=== PATIENT | female | born 1980 | race Caucasian/White ===

== ENCOUNTER → 2017-10-29 | Outpatient (CLI) | payer OTHER | END | disposition home or self-care (01) | LOC: LABWHC1 13:11 | PROVIDERS: ATTEND Internal Medicine Endocrinology, Diabetes & Metabolism | DX: E03.8 Other specified hypothyroidism (principal) | CPT/HCPCS: 36415; 84443 ==

== ENCOUNTER → 2018-01-27 | Outpatient (CLI) | payer OTHER ==
--- NOTE | 2018-02-01 09:29 | MM ---
Reason for exam: follow-up at short interval from prior study. Last mammogram was performed 7 months ago. History: Family history of breast cancer in grandmother at age 64. Physical Findings: Nurse did not find any significant physical abnormalities on exam. MG Diagnostic Mammo w CAD BRENDA Bilateral CC and MLO view(s) were taken. Prior study comparison: July 05, 2017, bilateral MG 3d diag mammo w/cad BRENDA. The breast tissue is heterogeneously dense. This may lower the sensitivity of mammography. No suspicious calcifications are seen. Stable nodular density upper outer right breast. Continued follow up. These results were verbally communicated with the patient and result sheet given to the patient on 01/27/18. ASSESSMENT: Probably benign, BI-RAD 3 RECOMMENDATION: Follow-up diagnostic mammogram of both breasts in 6 months.
== END | disposition home or self-care (01) ==
LOC: RADMAMWWP 15:41
PROVIDERS: ATTEND Family Medicine
DX: N64.4 Mastodynia (principal)
CPT/HCPCS: 77066

== ENCOUNTER 2018-02-24 08:08 | Day surgery (SDC) | payer OTHER ==
[2018-02-21 15:07] VITALS: BMI 41.1
[~2018-02-24 08:08] MED LIST: LACTATED RINGERS 1,000 ML IV SCH
[2018-02-24] MEDS ORDERED: LIDOCAINE 1% 20 ML VIAL (10MG/ML) FOR IV START INTRADERMA ONE (08:37)
[2018-02-24 08:45] VITALS: TEMP 98.4
[2018-02-24] MEDS ORDERED: LIDOCAINE 1% INJ 10MG/ML (20 ML MDV) ONE (09:21)
[2018-02-24] MEDS ORDERED: PROPOFOL 10 MG/ML 20 ML VIAL IV ONE (09:21)
[2018-02-24] MEDS ORDERED: MIDAZOLAM 2 MG/2 ML VIAL ONE (09:21)
[2018-02-24 10:08] VITALS: BP 110/78; PULSE 78; RESP 18
--- NOTE | 2018-02-24 10:08 | P.PCN ---
Date of Procedure: 02/24/18 Procedure(s) Performed: Procedure: 1. Esophagogastroduodenoscopy and biopsy. 2. Colonoscopy and biopsy. Preoperative diagnosis: History of reflux disease, nausea, vomiting and diarrhea. Postoperative diagnosis: 1. Small sliding hiatal hernia with no obvious esophagitis or complicated reflux disease. 2. Mild antral gastritis. 3. Normal colonoscopy. 4. Biopsies obtained from the duodenum, antrum, esophagus, terminal ileum and right colon. Preparation: HalfLytely prep. Sedation: Was provided by anesthesia. Brief clinical history: The patient is a 37-year-old female with history of chronic diarrhea. Initially, it was recurrent, 2 days or so every month. For the last 6 weeks or more the diarrhea is happening more frequently and she was having nausea and vomiting as well. There was some suggestion of dietary triggers since she had her gallbladder surgery in 2003. No extraintestinal manifestations of inflammatory bowel disease or bleeding. Her maternal aunt had Crohn's disease. Procedure: With the patient on her left lateral decubitus position and after informed consent and adequate sedation, I passed the Olympus-GIF 160 video upper endoscope through the cricopharyngeus down the esophagus. GE junction was around 39 cm from the incisors and there was a small sliding hiatal hernia but no obvious esophagitis or complicated reflux disease. The endoscope was then passed into the stomach which was insufflated with air and inspected in detail including the retroflex view in the cardia. There was some mottling and erythema in the antrum but no ulcers or erosions. Pyloric channel, duodenal bulb, post bulbar area and descending duodenum appeared within normal limits. I obtained biopsies from the duodenum, antrum and esophagus then the endoscope was withdrawn and I proceeded with the colonoscopy. Perianal area did not show any fissures or fistulas. There were no masses felt on digital rectal examination. The Olympus CFQ 160L video colonoscope was then inserted in the rectum in the usual fashion and advanced to the cecum. I had a brief look at the terminal ileum which appeared within normal limits. The colon appeared healthy with no edema, erythema, friability, ulceration, exudation or spontaneous bleeding. I obtained biopsies from the terminal ileum and right colon then I retroflexed endoscope in the rectum before the endoscope was withdrawn. The patient tolerated the procedure well. Plan: Will await biopsy results. I will make further plans based on her course and biopsy results. I will keep you updated on her progress.
== END 2018-02-24 10:20 | disposition home or self-care (01) ==
LOC: ORWHC2ENDO 08:08
DX: K29.50 Unspecified chronic gastritis without bleeding (principal); K21.9 Gastro-esophageal reflux disease without esophagitis; K52.9 Noninfective gastroenteritis and colitis, unspecified; K44.9 Diaphragmatic hernia without obstruction or gangrene; Z79.899 Other long term (current) drug therapy; Z90.49 Acquired absence of other specified parts of digestive tract
CPT/HCPCS: 81025; 88305; 45380; 43239; J2250; J2001; J2704

== ENCOUNTER → 2018-09-15 | Outpatient (CLI) | payer OTHER | END | disposition home or self-care (01) | LOC: LABWHC1 15:24 | PROVIDERS: ATTEND Internal Medicine Endocrinology, Diabetes & Metabolism | DX: E03.8 Other specified hypothyroidism (principal) | CPT/HCPCS: 36415; 84443 ==

== ENCOUNTER → 2019-10-31 | Outpatient (CLI) | payer OTHER | END | disposition home or self-care (01) | LOC: LABWHC1 16:53 | PROVIDERS: ATTEND Internal Medicine Endocrinology, Diabetes & Metabolism | DX: E03.8 Other specified hypothyroidism (principal) | CPT/HCPCS: 36415; 84443 ==

== ENCOUNTER → 2020-07-31 | Outpatient (CLI) | payer OTHER ==
--- NOTE | 2020-08-06 11:16 | MM ---
Reason for exam: screening (asymptomatic). Last mammogram was performed 2 years and 6 months ago. History: Family history of breast cancer in grandmother at age 64. Physical Findings: A clinical breast exam by your physician is recommended on an annual basis and results should be correlated with mammographic findings. MG 3D Screening Mammo W/Cad Bilateral CC and MLO view(s) were taken. Prior study comparison: January 27, 2018, bilateral MG diagnostic mammo w CAD BRENDA. July 05, 2017, bilateral MG 3d diag mammo w/cad BRENDA. The breast tissue is heterogeneously dense. This may lower the sensitivity of mammography. There is chronic nodularity bilaterally. Focal asymmetry with spiculated margins left MLO view. This finding is changed when compared with previous exams. ASSESSMENT: Incomplete: need additional imaging evaluation, BI-RAD 0 RECOMMENDATION: Special view mammogram of the left breast. If lesion persists on supplemental views, image directed ultrasound is recommended. [facility] will attempt to contact patient to return for supplemental views and ultrasound if indicated.
== END | disposition home or self-care (01) ==
LOC: RADMAMWWP 13:27
PROVIDERS: ATTEND Family Medicine
DX: Z12.31 Encounter for screening mammogram for malignant neoplasm of breast (principal)
CPT/HCPCS: 77063; 77067

== ENCOUNTER → 2020-08-16 | Outpatient (CLI) | payer OTHER ==
--- NOTE | 2020-08-16 17:51 | XR ---
EXAMINATION TYPE: XR finger LT DATE OF EXAM: 08/16/2020 COMPARISON: NONE HISTORY: Bite left index finger TECHNIQUE: 3 views FINDINGS: I see no fracture nor dislocation. Joint spaces are normal. There is no evidence of a forei gn body. IMPRESSION: Negative left index finger exam.
== END | disposition home or self-care (01) ==
LOC: RAD 17:13
PROVIDERS: ATTEND Emergency Medicine
DX: S67.191A Crushing injury of left index finger, initial encounter (principal); S61.251A Open bite of left index finger without damage to nail, initial encounter

== ENCOUNTER → 2020-08-26 | Outpatient (CLI) | payer OTHER ==
--- NOTE | 2020-08-26 12:21 | MM ---
Reason for exam: additional evaluation requested from abnormal screening. Last mammogram was performed 1 month ago. History: Family history of breast cancer in grandmother at age 64. Took hormonal contraceptives beginning at age 18. Physical Findings: Nurse did not find any significant physical abnormalities on exam. MG 3D Work Up W/Cad LT Spot compression MLO and LM view(s) were taken of the left breast. Prior study comparison: July 31, 2020, bilateral MG 3d screening mammo w/cad. January 27, 2018, bilateral MG diagnostic mammo w CAD BRENDA. Persistent 5mm nodule upper left breast 7.8cm from nipple. Ultrasound recommended. These results were verbally communicated with the patient and result sheet given to the patient on 08/26/20. ASSESSMENT: Incomplete: need additional imaging evaluation, BI-RAD 0 RECOMMENDATION: Ultrasound of the left breast.
--- NOTE | 2020-08-26 12:22 | USB ---
Reason for exam: additional evaluation requested from abnormal screening. History: Family history of breast cancer in grandmother at age 64. Took hormonal contraceptives beginning at age 18. US Breast Workup Limited LT Left limited breast ultrasound including focal area of concern, retroareolar and axilla demonstrates a 0.6 x 0.7 x 0.3cm lymph node at 10 o'clock and a 0.5 x 0.4 x 0.3cm cystic lesion at 1 o'clock. These results were verbally communicated with the patient and result sheet given to the patient on 08/26/20. ASSESSMENT: Benign, BI-RAD 2 RECOMMENDATION: Return to routine screening mammogram schedule for both breasts.
== END | disposition home or self-care (01) ==
LOC: RADMAMWWP 10:49
PROVIDERS: ATTEND Family Medicine
DX: R92.8 Other abnormal and inconclusive findings on diagnostic imaging of breast (principal)
CPT/HCPCS: 77061; 77065

== ENCOUNTER 2022-03-13 01:33 | Emergency (ER) | payer OTHER ==
[2022-03-13 01:49] VITALS: RESP 19; TEMP 97.5
--- NOTE | 2022-03-13 04:02 | XR ---
EXAM: XR Chest, 2 Views CLINICAL HISTORY: ITS.REASON XR Reason: sob TECHNIQUE: Frontal and lateral views of the chest. COMPARISON: 2016 FINDINGS: Lungs: No consolidation or mass. Pleural space: No effusion. Heart: No cardiomegaly. Bones/joints: No acute findings. IMPRESSION: No acute cardiopulmonary process.
[2022-03-13] MEDS ORDERED: ONDANSETRON ODT 4 MG TAB PO STA (04:10)
[2022-03-13] MEDS ORDERED: ONDANSETRON 4 MG ODT STARTER PACK 2 TAB BTL PO STA (04:10)
--- NOTE | 2022-03-13 04:10 | ED ---
Anxiety HPI - General Chief Complaint: Anxiety Stated Complaint: SOB Time Seen by Provider: 03/13/22 02:40 Source: patient, RN notes reviewed, old records reviewed Mode of arrival: ambulatory Limitations: no limitations - History of Present Illness Initial Comments: This is a 41-year-old female to the emergency department for evaluation she presents today for evaluation of what she feels it may be an anxiety attack but is feeling very short of breath and heart is racing. During these prior events she's never had significant shortness of breath with just today. Patient has significantly increasing anxiety as woke her up from sleep tonight. No chest pain shortness breath abdominal pain. MD Complaint: anxiety, heart racing, shortness of breath -: days(s) Symptoms: dyspnea Place: home Previous History of Same: Yes Severity: mild, moderate Provoking factors: none known Improves With: nothing Worsens With: nothing Associated symptoms: chest pain, palpitations - Related Data Home Medications: Home Medications Medication Instructions Recorded Confirmed Cholecalciferol [Vitamin D3] 1,000 unit PO DAILY 11/28/15 02/24/18 Levothyroxine Sodium [Tirosint] 100 mcg PO DAILY 11/28/15 02/24/18 Biotin [Biotin Disolve] 5,000 mcg PO DAILY 02/21/18 02/24/18 Cyanocobalamin [Vitamin B-12] 500 mcg PO DAILY 02/21/18 02/24/18 Ferrous Sulfate [Feosol] 325 mg PO DAILY 02/21/18 02/24/18 Omeprazole [PriLOSEC] 20 mg PO AC-BRKFST 02/21/18 02/24/18 Allergies/Adverse Reactions: Allergies Allergy/AdvReac Type Severity Reaction Status Date / Time No Known Allergies Allergy Verified 03/13/22 01:49 Review of Systems ROS Statement: Those systems with pertinent positive or pertinent negative responses have been documented in the HPI. ROS Other: All systems not noted in ROS Statement are negative. Past Medical History Past Medical History: GERD/Reflux, Thyroid Disorder Additional Past Medical History / Comment(s): HX OF N/V, DIARRHEA, CONSTIPATION History of Any Multi-Drug Resistant Organisms: None Reported Past Surgical History: Cholecystectomy Past Anesthesia/Blood Transfusion Reactions: Postoperative Nausea & Vomiting (PONV) Past Psychological History: No Psychological Hx Reported Smoking Status: Never smoker Past Alcohol Use History: Occasional Past Drug Use History: None Reported - Past Family History Mother Family Medical History: Pulmonary Embolus General Exam General appearance: alert, in no apparent distress, anxious Head exam: Present: atraumatic, normocephalic, normal inspection Eye exam: Present: normal appearance, PERRL, EOMI. Absent: scleral icterus, conjunctival injection, periorbital swelling ENT exam: Present: normal exam, mucous membranes moist Neck exam: Present: normal inspection. Absent: tenderness, meningismus, lymphadenopathy Respiratory exam: Present: normal lung sounds bilaterally. Absent: respiratory distress, wheezes, rales, rhonchi, stridor Cardiovascular Exam: Present: regular rate, normal rhythm, normal heart sounds. Absent: systolic murmur, diastolic murmur, rubs, gallop, clicks GI/Abdominal exam: Present: soft, normal bowel sounds. Absent: distended, tenderness, guarding, rebound, rigid Extremities exam: Present: normal inspection, full ROM, normal capillary refill. Absent: tenderness, pedal edema, joint swelling, calf tenderness Back exam: Present: normal inspection Neurological exam: Present: alert, oriented X3, CN II-XII intact Psychiatric exam: Present: normal affect, normal mood Skin exam: Present: warm, dry, intact, normal color. Absent: rash Course Vital Signs 03/13/22 03/13/22 01:46 04:40 Temperature 97.5 F L Pulse Rate 87 67 Respiratory 19 19 Rate Blood Pressure 172/97 150/90 O2 Sat by Pulse 100 98 Oximetry - Reevaluation(s) Reevaluation #1: 03/13/22 Medical record is reviewed Reevaluation #2: 03/13/22 Patient informed results and questions answered Reevaluation #3: 03/13/22 Patient continues to feel improved and can be discharged home Medical Decision Making - Medical Decision Making 41 female to the emergency department for severe anxiety reaction that woke him from sleep. Increased stress in her life. Patient is not homicidal or suicidal drug abuse. X-ray and EKG are negative patient can be discharged home Disposition Clinical Impression: Panic attack, Hyperventilation Disposition: HOME SELF-CARE Condition: Good Instructions (If sedation given, give patient instructions): Generalized Anxiety Disorder (ED) Is patient prescribed a controlled substance at d/c from ED?: No Referrals: None,Stated [REFERRING] - 1-2 days Time of Disposition: 04:45
[2022-03-13 04:40] VITALS: BP 150/90; PULSE 67
== END 2022-03-13 04:43 | disposition home or self-care (01) ==
LOC: EC 01:33
DX: F41.0 Panic disorder [episodic paroxysmal anxiety] (principal); R06.4 Hyperventilation; K21.9 Gastro-esophageal reflux disease without esophagitis; E07.9 Disorder of thyroid, unspecified; Z79.83 Long term (current) use of bisphosphonates; Z79.899 Other long term (current) drug therapy
CPT/HCPCS: 93005; 71046; 99285; S0119